=== PATIENT | female | born 1950 | race African-American/Black ===

== ENCOUNTER 2025-06-27 12:51 | Emergency (ER) | payer BC, MEDICARE ==
[~2025-06-27] VITALS: Ht 170.2 cm; Wt 72.6 kg
[2025-06-27] MEDS: IV NS 0.9% 500 ML BAG IV ONE (13:35)
[2025-06-27 13:54] LABS: PLATELET COUNT (AUTO) 300 K/uL (150-450); RED BLOOD CELL COUNT(AUTO) 3.88 MIL/uL (4.0-5.2); RED CELL DISTRIBUTION WIDTH 13.5 % (11.5-15.0); WHITE BLOOD COUNT (AUTO) 5.2 K/uL (4.3-11.0)
[2025-06-27 14:02] LABS: CALCIUM, SERUM 9.2 mg/dL (8.5-10.1); CREATININE 0.8 mg/dL (0.6-1.3); SODIUM SERUM 139 mmol/L (136-145); UREA NITROGEN, BLOOD 14 mg/dL (7-18)
[2025-06-27 14:09] LABS: ALCOHOL, BLOOD < 3 mg/dL (0-10); ASPARTATE AMINOTRANSFERASE 15 U/L (15-37); INR 0.98 (0.91-1.10); TOTAL PROTEIN, SERUM 7.3 g/dL (6.4-8.2)
[2025-06-27 14:10] LABS: LACTIC ACID 0.9 mmol/L (0.4-2.0)
[2025-06-27 14:22] LABS: SERUM AMMONIA < 10 umol/L (11-32)
[2025-06-27 14:38] LABS: APPEARANCE,URINE CLEAR (CLEAR); BLOOD, URINE NEGATIVE Ery/uL (NEGATIVE); LEUKOCYTE ESTERASE ,URINE NEGATIVE (NEGATIVE); NITRITE, URINE NEGATIVE (NEGATIVE); UGLUCOSE NEGATIVE (NEGATIVE)
[2025-06-27 14:45] LABS: AMPHETAMINE, URINE NEGATIVE (NEGATIVE); BARBITURATE, URINE NEGATIVE (NEGATIVE); BENZODIAZEPINE, URINE NEGATIVE (NEGATIVE); CANNABINOID, URINE NEGATIVE (NEGATIVE); COCCAINE, URINE NEGATIVE (NEGATIVE); OPIATE, URINE NEGATIVE (NEGATIVE)
[2025-06-27 15:25] VITALS: BP 178/82; TEMP 98.2; O2SAT 98
== END 2025-06-27 15:26 | disposition home or self-care (01) ==
LOC: ER 13:15
DX: R40.4 Transient alteration of awareness (principal); R53.83 Other fatigue; R30.0 Dysuria; F03.90 Unspecified dementia, unspecified severity, without behavioral disturbance, psychotic disturbance, mood disturbance, and anxiety; I10 Essential (primary) hypertension; Z86.73 Personal history of transient ischemic attack (TIA), and cerebral infarction without residual deficits; Z79.899 Other long term (current) drug therapy
CPT/HCPCS: 99285; 93005; 71045; 70450; 82140; 85025; 80048; 87040 ×2; 87086; 83605; 80076; 81003; 36415; 84443; 84484; 85730; 82962; 80143; 80320; 80307; J7040; G0480